=== PATIENT | male | born 1980 | race Caucasian/White ===

== ENCOUNTER 2018-10-26 10:56 | Day surgery (SDC) | payer MEDICARE ==
[2018-10-22 13:07] VITALS: BMI 29.0
[~2018-10-26 10:56] MED LIST: LACTATED RINGERS 1,000 ML IV SCH; LIDOCAINE 1% 20 ML VIAL (10MG/ML) FOR IV START INTRADERMA PRN
[2018-10-26 11:43] VITALS: TEMP 97.1
[2018-10-26] MEDS ORDERED: PROPOFOL 10 MG/ML 20 ML VIAL IV ONE (13:26)
--- NOTE | 2018-10-26 14:14 | P.PCN ---
Date of Procedure: 10/26/18 Procedure(s) Performed: Procedure: Colonoscopy and biopsy and polypectomy. Preoperative diagnosis: Intermittent rectal bleeding. Postoperative diagnosis: 1. Distal sigmoid polyp snared. 2. Prominent fold in the distal sigmoid with some polypoid features biopsied. 3. No other abnormalities noted to the cecum. 4. No active bleeding noted at the time of this exam. Preparation: HalfLytely prep. Sedation: Was provided by anesthesia. Brief clinical history: The patient is a 38-year-old male with history of osteogenesis imperfecta with multiple joint surgeries in the past, is scheduled for this evaluation because of intermittent rectal bleeding over the last 2 years. The bleeding is reported to look as fresh blood. There is no change in bowel habits or any other abdominal symptoms. No family history of colon cancer. Procedure: With the patient on his left lateral decubitus position and after informed consent and adequate sedation, the perianal area was inspected and it did not show any fissures or fistulas. There were no masses felt on digital rectal examination. The Olympus CFH 190L video colonoscope was then inserted in the rectum in the usual fashion and advanced to the cecum. There was a pedunculated distal sigmoid polyp measuring around 1.5 cm which was snared and retrieved by suctioning it to the tip of the endoscope and withdrawing the endoscope and restarting the exam. There was a prominent distal sigmoid fold that had polypoid features at its tip with some mucosal hemorrhage at its base. Because of its broad nature, I obtained biopsies today and no attempt was made for polypectomy. Elsewhere, the mucosa appeared healthy. No other polyps or tumors were seen or any evidence of bleeding. I retroflexed the endoscope in the rectum before the endoscope was withdrawn. No obvious pathology or other sources of bleeding. The patient tolerated the procedure well. Plan: The patient was reassured. Will await pathology results. Further plans will be made based on the pathology results and I will keep you updated on his progress.
[2018-10-26 14:29] VITALS: BP 121/76; PULSE 49; RESP 18
== END 2018-10-26 15:15 | disposition home or self-care (01) ==
LOC: ORWHC2ENDO 10:56
DX: K63.5 Polyp of colon (principal); D12.5 Benign neoplasm of sigmoid colon; F17.210 Nicotine dependence, cigarettes, uncomplicated
CPT/HCPCS: 88305; 45380; 45385; J2704